=== PATIENT | male | born 1945 | race Caucasian/White ===

== ENCOUNTER 2018-09-16 20:46 | Emergency (ER) | payer SELFPAY ==
[~2018-09-16] VITALS: Ht 175.3 cm; Wt 92.1 kg
--- NOTE | 2018-09-16 21:00 | NUR ---
LACERATION ABOVE LEFT EYE S/P FALL. ADDITIONALLY HAS LEFT KNEE PAIN FROM FALLING ON IT. AND FOR 2 WEEKS HIS RIGHT KNEE HAS BEEN INCREASINGLY SWELLING WITH ERYTHEMA.
[2018-09-16] MEDS ORDERED: LIDOCAINE-MPF 1%, 5ML ONE (21:15)
[2018-09-16] MEDS ORDERED: DIPH,PERTUSS(ACELL),TET VAC/PF 0.5 ML IM-VACC ONE ×2 (21:16→21:30)
[2018-09-16] MEDS ORDERED: LIDOCAINE 2%, 20ML SQ ONE (21:30)
[2018-09-16] MEDS ORDERED: ACETAMINOPHEN 325 MG TABLET PO ONE (22:00)
[2018-09-16] MEDS ORDERED: ACETAMINOPHEN 500 MG TABLET ONE (22:09)
[2018-09-16] MEDS ORDERED: BACITRACIN ZINC OINT 500U/GM, 0.9 GM ONE (22:22)
[2018-09-16 22:28] VITALS: BP 135/72
== END 2018-09-16 22:31 | disposition home or self-care (01) ==
LOC: ED 22:25
DX: S01.81XA Laceration without foreign body of other part of head, initial encounter (principal); E78.5 Hyperlipidemia, unspecified; M70.42 Prepatellar bursitis, left knee; W01.0XXA Fall on same level from slipping, tripping and stumbling without subsequent striking against object, initial encounter; Y93.89 Activity, other specified; Y92.410 Unspecified street and highway as the place of occurrence of the external cause; Y99.8 Other external cause status
CPT/HCPCS: 12013; 70450; 90471; 90715